=== PATIENT | female | born 1980 | race Caucasian/White ===

== ENCOUNTER 2019-03-12 07:53 | Emergency (ER) | payer OTHER ==
[~2019-03-12 07:53] MED LIST: AMOX500 PO; ANTIDEPRESANT; ANTIDEPRESSANT PO; Amoxicillin875 MG PO; CITA20; CYCL10 PO; DESI10; DIAZ5 PO; DULO30; DULO60 PO; GUAPSEER PO; HYDACE5 PO; HYDPAM25 PO; IBUP800; IBUP800 PO; LORA10ER PO; METO10; METPRE4DP PO; MULVITA; NAPR250 PO; NAPR500 PO; Norco 5-325 Ta1 EACH PO; OLAN5 PO; OXYACE5T PO; PROZAC; QUET300 PO; RXOXYACE PO; RXSULTRIDS PO; Robaxin500 MG PO; SEROQUEL; SULTRIDS PO; VENL75ER
== END 2019-03-12 08:22 | disposition left against medical advice (07) ==
LOC: ER 07:53
DX: Z53.21 Procedure and treatment not carried out due to patient leaving prior to being seen by health care provider (principal)

== ENCOUNTER 2019-07-10 06:03 | Emergency (ER) | payer OTHER ==
[~2019-07-10] VITALS: Ht 177.8 cm; Wt 120.2 kg
[2019-07-10] MEDS ORDERED: REXULTI0.25 MG (06:19)
[2019-07-10] MEDS ORDERED: ESCI10 (06:19)
[2019-07-10] MEDS ORDERED: Zantac150 MG (06:19)
[2019-07-10] MEDS ORDERED: Augmentin 875-1 EACH PO (08:12)
== END 2019-07-10 08:25 | disposition home or self-care (01) ==
LOC: ER 06:03
DX: J32.9 Chronic sinusitis, unspecified (principal); F31.9 Bipolar disorder, unspecified; Z79.899 Other long term (current) drug therapy
CPT/HCPCS: 99283

== ENCOUNTER → 2020-10-18 | Outpatient (CLI) | payer OTHER ==
[~2020-10-18] MED LIST changes: +Augmentin 875-1 EACH PO; +ESCI10; +REXULTI0.25 MG; +Zantac150 MG
== END | disposition home or self-care (01) ==
LOC: LAB SHORT 15:19
DX: N61.1 Abscess of the breast and nipple (principal)
CPT/HCPCS: 87081

== ENCOUNTER 2022-02-10 13:09 | Emergency (ER) | payer OTHER ==
[~2022-02-10] VITALS: Ht 180.3 cm; Wt 139.7 kg
[2022-02-10] MEDS ORDERED: Voltaren100 GM TOP (13:25)
[2022-02-10] MEDS ORDERED: Norco 5-325 Ta1 EACH PO (13:25)
== END 2022-02-10 13:15 | disposition home or self-care (01) ==
LOC: ER 13:09
DX: G56.03 Carpal tunnel syndrome, bilateral upper limbs (principal); Z79.899 Other long term (current) drug therapy
CPT/HCPCS: 99282

== ENCOUNTER 2022-05-20 00:36 | Emergency (ER) | payer OTHER ==
[~2022-05-20] VITALS: Ht 180.3 cm; Wt 139.7 kg
[~2022-05-20 00:36] MED LIST changes: +Voltaren100 GM TOP
[2022-05-20 03:13] LABS: Influenza A, PCR NEGATIVE (NEGATIVE); Influenza B, PCR NEGATIVE (NEGATIVE); Resp Syncytial Virus, PCR NEGATIVE (NEGATIVE)
[2022-05-20 03:20] LABS: SARS-Cov-2 (COVID-19) PCR, MMC POSITIVE (NEGATIVE)
== END 2022-05-20 03:30 | disposition home or self-care (01) ==
LOC: ER 00:36
PROVIDERS: Student in an Organized Health Care Education/Training Program
DX: U07.1 COVID-19 (principal); F17.200 Nicotine dependence, unspecified, uncomplicated; Z79.899 Other long term (current) drug therapy
CPT/HCPCS: 0241U; A9270; J1885

== ENCOUNTER 2023-12-02 12:45 | Day surgery (SDC) | payer OTHER ==
[~2023-12-02] VITALS: Ht 175.3 cm; Wt 141.6 kg
[~2023-12-02 12:45] MED LIST changes: +Lactated Ringer's 0 ML IV ONE
[2023-12-02] MEDS ORDERED: IBUP600 (13:17)
[2023-12-02] MEDS ORDERED: ESCI10 PO (13:17)
[2023-12-02] MEDS ORDERED: propofoL 50 ML IV ONE (13:21)
[2023-12-02] MEDS ORDERED: CeFAZolin Sodium 3,000 MG in NS 100 ML IV SCH (13:25)
[2023-12-02 13:34] VITALS: BP 147/96
--- NOTE | 2023-12-02 13:35 | NUR ---
12/02/23 1335 Kelly Ruiz PER PT HARD IV STICK, FORMER USER, HAS BEEN ABOUT 5 YEARS.
[2023-12-02] MEDS ORDERED: Lactated Ringer's 1,000 ML IV ONE (14:13)
[2023-12-02] MEDS ORDERED: Midazolam HCl 1MG / ML 2ML Vial ONE (14:52)
[2023-12-02] MEDS ORDERED: Acetaminophen 500 MG Tab ONE (14:52)
[2023-12-02] MEDS ORDERED: Ropivacaine 0.5% HCl/Pf 5 MG/ML 20ML VIAL ONE (14:59)
[2023-12-02] MEDS ORDERED: FentaNYL Citrate 50 MCG/ML 2 ML Injection ONE (15:00)
[2023-12-02] MEDS ORDERED: propofoL 20 ML IV ONE ×2 (15:01)
[2023-12-02] MEDS ORDERED: Sugammadex Sodium 200 MG/2ML SDV (100 MG/ML) ONE (15:14)
[2023-12-02] MEDS ORDERED: Dexamethasone Sod Phos 10 MG/ML 1ML VIAL ONE (15:24)
[2023-12-02] MEDS ORDERED: Ondansetron HCl 2 MG / ML 2ML Vial ONE (15:24)
[2023-12-02] MEDS ORDERED: EPINEPhrine HCl 1 MG/ML 1ML Amp XX ONE (15:27)
--- NOTE | 2023-12-02 15:30 | NUR ---
12/02/23 1530 Nidia Chacon ROPIVACAINE 0.5% 10MLS MIXED AND VERIFIED W/ EPI 0.05ML (1MG/ML) TO MAKE ROPIVACAINE 0.5% W/ EPI 1:200,000 FOR INJECTION AT OPSITE ON FIELD.
== END 2023-12-02 16:16 | disposition home or self-care (01) ==
LOC: ORSCSDS 12:45
PROVIDERS: Orthopaedic Surgery
PROC: 01N50ZZ Release Median Nerve, Open Approach (ICD-10-PCS; principal; 2023-12-02 14:15)
DX: G56.03 Carpal tunnel syndrome, bilateral upper limbs (principal); F32.A Depression, unspecified; Z79.899 Other long term (current) drug therapy; E66.01 Morbid (severe) obesity due to excess calories; Z68.42 Body mass index [BMI] 45.0-49.9, adult
CPT/HCPCS: A9270; J0171; J0690; J1100; J2250; J2405; J2704; J2795; J3010; J7120

== ENCOUNTER 2024-12-13 08:11 | Emergency (ER) | payer OTHER ==
[~2024-12-13] VITALS: Ht 180.3 cm; Wt 145.8 kg
[~2024-12-13 08:11] MED LIST changes: +ESCI10 PO; +IBUP600; -Lactated Ringer's 0 ML IV ONE
[2024-12-13 09:00] VITALS: BP 143/0
[2024-12-13] MEDS ORDERED: AMOCLA875 PO (09:05)
[2024-12-13] MEDS ORDERED: Percocet 5-3251 EACH PO (09:05)
[2024-12-13] MEDS ORDERED: ONDA4ODT MM (09:05)
== END 2024-12-13 09:10 | disposition home or self-care (01) ==
LOC: ER 08:11
DX: K02.9 Dental caries, unspecified (principal); Z79.899 Other long term (current) drug therapy; F17.200 Nicotine dependence, unspecified, uncomplicated; Z98.890 Other specified postprocedural states
CPT/HCPCS: 99282